=== PATIENT | male | born 1960 | race Caucasian/White ===

== ENCOUNTER 2017-07-07 11:14 | Day surgery (SDC) | payer BC ==
[2017-06-30 08:09] VITALS: BP 136/96
[~2017-07-07] VITALS: Ht 185.4 cm; Wt 119.9 kg
[~2017-07-07 11:14] MED LIST: AMLO5TAB4 PO; CETI-158 PO; CETI10CA PO; LEVO125T5 PO; LEVO50TA PO; LOSA50TA6 PO; SIMV20TA PO
[2017-07-07] MEDS ORDERED: LACTATED RINGERS 1,000 ML IV SCH (12:24)
[2017-07-07 12:26] VITALS: BP 136/96
[2017-07-07] MEDS ORDERED: LIDOCAINE 1%, 2ML SQ PRN (12:30)
[2017-07-07] MEDS ORDERED: LIDOCAINE 1%, 2ML ONE (12:35)
[2017-07-07] MEDS ORDERED: ESMOLOL 100 MG/10 ML ONE (13:34)
[2017-07-07] MEDS ORDERED: NEOSTIGMINE 1 MG/ML, 10ML ONE (13:34)
[2017-07-07] MEDS ORDERED: ONDANSETRON 2MG/ML, 2ML ONE (13:34)
[2017-07-07] MEDS ORDERED: LABETALOL 5MG/ML, 20ML ONE (13:34)
[2017-07-07] MEDS ORDERED: DEXAMETHASONE 4 MG/ML, 5ML ONE (13:34)
[2017-07-07] MEDS ORDERED: GLYCOPYRROLATE 0.2MG/1ML, 5ML ONE (13:34)
[2017-07-07] MEDS ORDERED: ROCURONIUM 10 MG/ML ONE (13:34)
[2017-07-07] MEDS ORDERED: PROPOFOL 10 MG/ML, 20ML ONE (13:34)
[2017-07-07] MEDS ORDERED: FENTANYL PF 100 MCG/2ML IV PRN (14:00)
[2017-07-07] MEDS ORDERED: MIDAZOLAM 1 MG/ML, 2ML IV PRN (14:00)
[2017-07-07] MEDS ORDERED: LORazepam 2 MG/ML, 1ML IVPush PRN (14:00)
[2017-07-07] MEDS ORDERED: ONDANSETRON 2MG/ML, 2ML IVPush PRN (14:00)
[2017-07-07] MEDS ORDERED: PROMETHAZINE 25 MG/ML, 1ML IV PRN (14:00)
[2017-07-07] MEDS ORDERED: OXYcodone 5 MG/5 ML ORAL.SOL UDC PO PRN (14:00)
[2017-07-07] MEDS ORDERED: ACETAMINOPHEN 325 MG TABLET PO PRN (14:00)
[2017-07-07] MEDS ORDERED: MEPERIDINE/PF 25MG/0.5ML IVPush PRN (14:00)
[2017-07-07] MEDS ORDERED: HYDROmorphone 1 MG/ML, 1ML IV PRN (14:00)
[2017-07-07] MEDS ORDERED: FENTANYL PF 100 MCG/2ML ONE ×3 (14:06→14:30)
[2017-07-07] MEDS ORDERED: OXYcodone 5 MG/5 ML ORAL.SOL UDC ONE (14:30)
[2017-07-07] MEDS ORDERED: ACETAMINOPHEN 650 MG/20.3 ML UDC ONE (14:30)
[2017-07-07] MEDS ORDERED: hydrALAzine 20 MG/ML, 1ML ONE (15:14)
[2017-07-07] MEDS: hydrALAzine 20 MG/ML, 1ML IV PRN ×2 (15:16→15:36)
[2017-07-07] MEDS: LABETALOL 5MG/ML, 20ML IV PRN ×2 (15:45→15:58)
== END 2017-07-07 17:20 ==
LOC: OUT 11:14
PROVIDERS: ATTEND Urology
DX: N30.20 Other chronic cystitis without hematuria (principal); N30.00 Acute cystitis without hematuria; E78.00 Pure hypercholesterolemia, unspecified; I10 Essential (primary) hypertension; E03.9 Hypothyroidism, unspecified
CPT/HCPCS: 52204; 88305; J0360; J1100; J2405; J2704; J2710; J3010; J3490; J7120

== ENCOUNTER 2018-12-17 21:55 | Emergency (ER) | payer BC ==
[~2018-12-17] VITALS: Ht 185.4 cm; Wt 124.9 kg
[~2018-12-17 21:55] MED LIST changes: +LOSA50TA14 PO; -LOSA50TA6 PO
[2018-12-17] MEDS ORDERED: LIDOCAINE JELLY 2%, 30GM TP ONE (22:00)
--- NOTE | 2018-12-17 22:28 | NUR ---
PT PRESENTS TO ED C/O RECENT CYSTOSCOPY PROCEDURE W/ CAUTERIZATION INSIDE BLADDER AT UROLOGIST. STATES NOTICING BRIGHT RED BLOOD AND BLOOD CLOTS IN URINE LAST COUPLE OF DAYS. STATES INCREASING BLADDER PAIN/DISTENTION TONIGHT W/ URGENCY TO URINATE AND UNABLE TO. DENIES ANY FLANK PAIN OR FEVERS. DENIES ANY HYPOTENSIVE SYMPTOMS. MD ORDERED BRISTAJET LIDOCAINE FOR PT. THIS RN APPLIED PER MD ORDER. TO BE CATHETERIZED AND CBI PER MD ORDER.
[2018-12-17 23:01] LABS: BASOPHILS # (AUTO) 0.03 x10^3/uL (0-0.1); BASOPHILS % (AUTO) 0 % (0-1); EOSINOPHILS # (AUTO) 0.06 x10^3/uL (0-0.4); EOSINOPHILS % (AUTO) 1 % (1-7); LYMPHOCYTES # (AUTO) 1.66 x10^3/uL (1-3.4); LYMPHOCYTES % (AUTO) 20 % (22-44); MD NO; MEAN CORPUSCULAR HEMOGLOBIN 29.4 pg (27.5-34.5); MEAN CORPUSCULAR HGB CONC 33.8 g/dL (33.2-36.2); MEAN PLATELET VOLUME 8.4 fL (7.4-10.4); MONOCYTES # (AUTO) 0.66 x10^3/uL (0.2-0.8); MONOCYTES % (AUTO) 8 % (2-9); NEUTROPHILS % (AUTO) 72 % (42-75); PLATELET COUNT 202 x10^3/uL (130-400); RED BLOOD COUNT 4.83 x10^6/uL (4.38-5.82); RED CELL DISTRIBUTION WIDTH 13.8 % (9.4-14.8)
[2018-12-17 23:13] LABS: ALBUMIN 3.7 g/dL (3.4-5.0); ANION GAP 8 mmol/L (5-15); CALCIUM 8.7 mg/dL (8.5-10.1); CHLORIDE 110 mmol/L (98-107); CREATININE 1.41 mg/dL (0.7-1.3)
--- NOTE | 2018-12-17 23:14 | NUR ---
20 G URINARY CATH IN PLACE AND HAND IRRIGATION YIELDED APPROXIMATELY SAME AMOUNT OF ML PUT IN. INITIALLY APPROXIMATELY 450 ML OF DARK RED BLOODY URINED NOTED. MD AT BEDSIDE FOR REASSESSMENT AT THAT TIME. ORDERED LABS TO BE DRAWN. CBI INITIATED AND MULTIPLE LARGE CLOTS NOTED IN CATHETER. PT DENIES ANY INCREASED PAIN OR DISTENTION IN BLADDER. STATES A RELIEF OF PAIN AND URGENCY TO GO.
[2018-12-18] LABS: MICROSCOPIC INDICATED
[2018-12-18 00:01] LABS: CULTURE INDICATED? YES
[2018-12-18 00:06] VITALS: BP 146/92
--- NOTE | 2018-12-18 00:06 | NUR ---
APPROXIMATELY 2L OF IRRIGATION ACCOMPLISHED AND APPROXIMATELY 2800ML URINE OUTPUT. MD AWARE AND ORDERS 1 MORE L OF IRRIGATION AND THEN MD RECHECK. URINE STILL APPEARS DARK RED IN COLOR. MD AWARE.
--- NOTE | 2018-12-18 00:39 | NUR ---
1L OF IRRIGATION ACCOMPLISHED W/ APPROXIMATELY SAME AMOUNT OF DRAINAGE. PT URINE LESS BLOODY. MD AT BEDSIDE FOR RECHECK. GIVEN OPTION FOR ADMIT BY MD, PT WOULD PREFER GOING HOME AND FOLLOWING UP W/ UROLOGY. GIVEN LEG BAGS AND 2L CATH DRAIN BAGS FOR HOME CATH CARE. INSTRUCTED ON PROPER CATH CARE AT THIS TIME.
--- NOTE | 2018-12-18 00:59 | NUR ---
PT STATES HE WOULD PREFER TO NOT CHANGE INTO LEG BAG, FOR EASE OF SLEEP TONIGHT.
== END 2018-12-18 01:05 | disposition home or self-care (01) ==
LOC: ED 22:33
DX: R31.9 Hematuria, unspecified (principal); N40.1 Benign prostatic hyperplasia with lower urinary tract symptoms; R33.8 Other retention of urine; I10 Essential (primary) hypertension; E78.5 Hyperlipidemia, unspecified; E03.9 Hypothyroidism, unspecified
CPT/HCPCS: 36415; 51702; 80048; 81001; 82040; 85025; 87086; 99284

== ENCOUNTER 2020-10-06 19:46 | Emergency (ER) | payer BC ==
[~2020-10-06] VITALS: Ht 185.4 cm; Wt 122.7 kg
--- NOTE | 2020-10-06 19:50 | NUR ---
"MY HEART IS RACING". STARTED AT 1300 TODAY. NO HX A FIB. NOT ON BLOOD THINNERS. +DIZZINESS "FOR MONTHS". MONITORS APPLIED. EKG DONE IN TRIAGE. NADN. ALL OTHER VSS. PT RESTING ON GURNEY. WARM BLANKET PROVIDED.
[2020-10-06] MEDS ORDERED: METOPROLOL 1 MG/ML, 5ML IVPush PRN (20:00)
[2020-10-06] MEDS ORDERED: SODIUM CHLORIDE FLUSH 10ML SYR IVF ONE (20:00)
[2020-10-06] MEDS ORDERED: SODIUM CHLORIDE 0.9% 1,000 ML IV ONE (20:00)
[2020-10-06] MEDS ORDERED: METOPROLOL 1 MG/ML, 5ML ONE (20:03)
--- NOTE | 2020-10-06 20:29 | NUR ---
PT HR REMAINS 117-146. PT BP NOTED TO DROP FROM SBP 122 TO 99. ERP TO BE NOTIFIED.
[2020-10-06 20:44] LABS: BASOPHILS % (AUTO) 1 % (0-1); EOSINOPHILS % (AUTO) 3 % (1-7); LYMPHOCYTES % (AUTO) 35 % (22-44); MEAN CORPUSCULAR HEMOGLOBIN 29.8 pg (27.5-34.5); MEAN CORPUSCULAR HGB CONC 33.5 g/dL (33.2-36.2); MEAN PLATELET VOLUME 9.1 fL (7.4-10.4); MONOCYTES % (AUTO) 8 % (2-9); NEUTROPHILS % (AUTO) 54 % (42-75); PLATELET COUNT 212 x10^3/uL (130-400); RED BLOOD COUNT 4.93 x10^6/uL (4.38-5.82); RED CELL DISTRIBUTION WIDTH 14.2 % (9.4-14.8)
[2020-10-06 20:48] LABS: MD NO
--- NOTE | 2020-10-06 20:48 | NUR ---
CONSENT SIGNED BY ERP DR. WALL, PT, AND THIS RN AND PLACED ON CHART.
[2020-10-06 20:52] LABS: ALBUMIN 3.7 g/dL (3.4-5.0); ANION GAP 5 mmol/L (5-15); CALCIUM 9.1 mg/dL (8.5-10.1); CHLORIDE 107 mmol/L (98-107)
[2020-10-06] MEDS ORDERED: ETOMIDATE 20 MG/10 ML ONE (20:52)
--- NOTE | 2020-10-06 20:55 | NUR ---
REPORT GIVEN TO ROXANN HELTON RN.
[2020-10-06 20:58] LABS: CREATININE 1.15 mg/dL (0.7-1.3); TROPONIN I < 0.015 ng/mL (0.000-0.045)
--- NOTE | 2020-10-06 21:03 | NUR ---
PT RESTING comfortably in bed. on cr monitor, and defibrilation pads placed on chest and back. pt on o2 nc 2lpm, and on defibrillator monitor at this time. pt talkative and a&ox4. see v/s. emergency equipment prepared at bedside, with suction and adult bvm, emergency meds in crash cart, also at bedside. MD aware pt is ready for synchronized cardioversion.
[2020-10-06 21:23] LABS: FREE T4 (FREE THYROXINE) 0.96 ng/dL (0.76-1.46)
[2020-10-06 22:08] VITALS: BP 119/72
--- NOTE | 2020-10-06 22:09 | NUR ---
piv x2 d/c'd and f/u and d/c instructions given to pt, and he v/u. family at bedside, and defib pads removed, and pt dressed for departure. see chart for v/s. procedural sedation paper records placed with chart. pt a&ox4 and ambulatory, no c/o pain or dizziness or distress. steady ambulation.
== END 2020-10-06 22:11 | disposition home or self-care (01) ==
LOC: ED 21:09
DX: I48.91 Unspecified atrial fibrillation (principal); R00.2 Palpitations; R07.89 Other chest pain; I10 Essential (primary) hypertension; E78.5 Hyperlipidemia, unspecified; E03.9 Hypothyroidism, unspecified
CPT/HCPCS: 36415; 71045; 80048; 82040; 84439; 84443; 84484; 85025; 92960; 93005; 96361; 96374; 99285; J7030

== ENCOUNTER → 2020-10-18 | Outpatient (CLI) | payer BC | END | disposition home or self-care (01) | LOC: CVU 06:34 | PROVIDERS: ATTEND Internal Medicine Cardiovascular Disease | DX: I48.91 Unspecified atrial fibrillation (principal); I10 Essential (primary) hypertension | CPT/HCPCS: 93306 ==